=== PATIENT | male | born 1965 | race Caucasian/White ===

== ENCOUNTER 2022-03-09 21:54 | Inpatient (IN) | payer BC ==
[~2022-03-09] VITALS: Ht 165.1 cm; Wt 79.4 kg
[2022-03-09 21:54] VITALS: BP 151/78
[2022-03-09] MEDS ORDERED: KETOROLAC 30 MG/ML VIAL IVP ONE (23:55)
[2022-03-09] MEDS ORDERED: NACL 0.9% 1,000 ML IV ONE (23:55)
--- NOTE | 2022-03-10 00:03 | NUR ---
PATIENT SITTING IN CHAIR C. IVF INITIATED PER ORDERS. PATIENT TOLERATED WELL.
[2022-03-10 00:17] LABS: APPEARANCE,URINE CLEAR (CLEAR); BILIRUBIN,URINE NEGATIVE (NEGATIVE); BLOOD, URINE 3+ (NEGATIVE); COLOR,URINE YELLOW (YELLOW); LEUKOCYTE ESTERASE ,URINE TRACE (NEGATIVE); NITRITE, URINE POSITIVE (NEGATIVE); UGLUCOSE 3+ (NEGATIVE)
[2022-03-10 00:17] LABS: BASOPHILS % (AUTO) 0.1 % (0.0-2.0); HEMATOCRIT 34.7 % (36-52); HEMOGLOBIN 11.6 g/dL (12.0-18.0); LYMPHOCYTES # (AUTO) 0.4 K/uL (2.0-11.5); LYMPHOCYTES % (AUTO) 2.5 % (20.5-51.1); MEAN CORPUSCULAR HEMOGLOBIN 30 pg (27-31); MEAN CORPUSCULAR HGB CONC 33 g/dL (33-37); MEAN CORPUSCULAR VOLUME 89.6 fL (80-94); MONOCYTES # (AUTO) 1.4 K/uL (0.8-1.0); MONOCYTES % (AUTO) 8.2 % (1.7-9.3); NEUTROPHILS # (AUTO) 15.5 K/uL (1.8-7.7); NEUTROPHILS % (AUTO) 89.2 % (42.2-75.2); PLATELET COUNT (AUTO) 195 K/uL (140-450); RED BLOOD CELL COUNT(AUTO) 3.87 MIL/uL (4.20-6.10); RED CELL DISTRIBUTION WIDTH 13.9 % (11.6-13.7); WHITE BLOOD COUNT (AUTO) 17.4 K/uL (4.8-10.8)
[2022-03-10 00:34] LABS: ALBUMIN 2.3 g/dL (3.4-5.0); ANION GAP 15.3 (8-16); CARBON DIOXIDE 23.3 mmol/L (21-32); CREATININE 1.5 mg/dL (0.6-1.3); POTASSIUM 4.6 mmol/L (3.5-5.1); TOTAL BILIRUBIN 0.6 mg/dL (0.0-1.0)
[2022-03-10 00:46] LABS: RBC,URINE 0-5 /HPF (0-5); WBC,URINE 20-60 /HPF (0-5)
[2022-03-10] MEDS ORDERED: cefTRIAXone 2,000 MG in DEXTROSE 5% 100 ML IV ONE (01:00)
[2022-03-10] MEDS ORDERED: NACL 0.9% 1,000 ML IV ONE (01:00)
--- NOTE | 2022-03-10 01:27 | NUR ---
PATIENT TO BED 12. IVF INTIATED ORDERED. TOLERATED WELL.
[2022-03-10] MEDS ORDERED: cefTRIAXone 2,000 MG VIAL ONE (02:36)
[2022-03-10] MEDS ORDERED: MORPHINE SULFATE 2 MG/ML SYR IVP ONE (05:00)
[2022-03-10] MEDS ORDERED: ONDANSETRON 4 MG/2 ML VIAL IVP ONE (05:00)
[2022-03-10] MEDS ORDERED: HYDROcodone/APAP 5/325 MG 1 TAB TAB PO PRN (05:40)
[2022-03-10] MEDS ORDERED: LORazepam 2 MG/ML VIAL IVP PRN (05:40)
[2022-03-10] MEDS: NACL 0.9% 1,000 ML IV SCH ×2 (06:02→14:59)
--- NOTE | 2022-03-10 06:46 | NUR ---
Dr. Chao verbally informed, via telephone, patient's BG is 216. Dr. Chao verbalized understanding, no further orders.
[2022-03-10] MEDS ORDERED: GLYB-200 PO (07:39)
[2022-03-10] MEDS ORDERED: METF-1253 PO (07:40)
--- NOTE | 2022-03-10 07:50 | NUR ---
Received report from Mark JOSEPH, assumed care at this time.
--- NOTE | 2022-03-10 07:51 | NUR ---
Change of shift report given to AM shift nurse Yanira RN. AM shift nurse Yanira RN verbalized understanding of report, no further questions.
--- NOTE | 2022-03-10 08:16 | NUR ---
Patient will be admitted to care of DR. SWANSON. Admited to Med/Surg. Will go to room 120B. Belongings list completed. Report to CHIKI ALTMAN BEDSIDE.
[2022-03-10 08:19] VITALS: BP 147/75
--- NOTE | 2022-03-10 08:20 | NUR ---
PT ARRIVED ONTO UNIT FROM ER DEPT. PT ARRIVED VIA WHEEL CHAIR, ACCOMPANIED BY ER NURSE. PT AMBULATED FROM WHEELCHAIR TO BED INDEPENDENTLY. PT IS ALERT, ORIENTED, AND COOPERATIVE. ABLE TO FOLLOW COMMANDS, ABLE TO VERBALIZE NEEDS. [place] SPEAKING ONLY. RESPIRATIONS ARE EVEN AND UNLABORED ON ROOM AIR. NO SIGNS OF DISTRESS NOTED. NO COMPLAINTS OF SOB. ABD IS NONTENDER, NONDISTENDED WITH BOWEL SOUNDS PRESENT. PT IS ON CCHO DIET, TOLERATING WELL. PT HAS FULL ROM TO UPPER AND LOWER EXTREMITIES. SKIN IS WARM, DRY, AND INTACT. PT HAS IV TO L AC, RUNNING NS @ 100ML/HR. PT DENIES ANY PAIN OR DISCOMFORT AT THIS TIME. ORIENTED PT TO ROOM, CALL LIGHT, AND HOSPITAL POLICIES. MRSA DONE, VITAL SIGNS DONE. CALL LIGHT WITHIN REACH. ALL SAFETY MEASURES IN PLACE.
[2022-03-10] MEDS ORDERED: DEXTROSE 50% 50 ML SYR IVP PRN (08:30)
[2022-03-10] MEDS: ENOXAPARIN 40 MG/0.4 ML SYR SUBQ SCH (08:58)
--- NOTE | 2022-03-10 08:59 | NUR ---
ADMINISTERED SCHEDULED MEDICATION. EDUCATED PT ON MED ADMINISTERED. PT VERBALIZED UNDERSTANDING. PT TOLERATED WELL.
[2022-03-10] MEDS: ACETAMINOPHEN 325 MG TAB PO PRN ×2 (10:05→16:36)
--- NOTE | 2022-03-10 10:09 | NUR ---
DIGITAL MEDIA INTERN INFORMED NURSE THAT PT HAD TEMPERATURE OF 99.8. WENT TO ASSESS PT. PT ASKING FOR TYLENOL. ADMINISTERED TYLENOL, STARTED COOLING MEASURES. WILL RE-ASSESS.
--- NOTE | 2022-03-10 11:10 | NUR ---
WENT TO GO RE-ASSESS PT TEMP. PT RESTING AT THIS TIME. RESPIRATIONS ARE EVEN AND UNLABORED. NO SIGNS OF DISTRESS NOTED. TEMPERATURE DOWN TO 98.7. WILL CONTINUE TO MONITOR.
[2022-03-10] MEDS: BLOOD GLUCOSE MONITORING 1 DEV DEV FS SCH ×3 (11:36→20:46)
[2022-03-10] MEDS: INSULIN LISPRO SLIDING SCALE 100 UNITS/ML VIAL SUBQ PRN ×3 (11:40→21:02)
--- NOTE | 2022-03-10 13:40 | NUR ---
WENT TO CHECK ON PT. FAMILY AT BEDSIDE. FAMILY STATES PT "REALLY LIKES EATING SOUP. WE WILL BRING HIM SOME SOUP LATER". EDUCATED PT AND FAMILY ON APPROPRIATE FOOD CHOICES WITH [facility] DIET.
--- NOTE | 2022-03-10 13:54 | NUR ---
PATIENT HAS BEEN SCREENED AND CATEGORIZED MODERATE NUTRITION RISK. PATIENT WILL BE SEEN WITHIN 3-5 DAYS OF ADMISSION. / [address]
[2022-03-10 16:00] VITALS: BP 128/71
--- NOTE | 2022-03-10 16:47 | NUR ---
PT BLOOD GLUCOSE WAS 275. COVERED WITH 6 UNITS INSULIN PER SLIDING SCALE.
--- NOTE | 2022-03-10 18:30 | NUR ---
RECEIVED CALL FROM LAB, STATED THAT PRELIMINARY BLOOD CULTURE WAS GRAM POSITIVE RODS. SPECIMEN WILL BE SENT TO [facility].
--- NOTE | 2022-03-10 19:24 | NUR ---
ENDORSED PT TO CRUCIBLE FURNACE TENDER NURSE FOR CONTINUITY OF CARE. PT IS STABLE.
--- NOTE | 2022-03-10 19:25 | NUR ---
RECD. RESTING IN BED, AWAKE, A/OX4. RESPIRATION EVEN AND UNLABORED. IV OF NS INFUSING AT 100 ML/HR, LEFT AC G18. USES THE URINAL, AMBULATORY TO THE BR. CONVERSING WITH VISITOR AT THE BEDSIDE. DENIES PAIN 0/10.
--- NOTE | 2022-03-10 20:00 | NUR ---
Patient's Plan of Care was discussed and reviewed with ANUPAMA: LORENA
--- NOTE | 2022-03-10 20:46 | NUR ---
BLOOD SUGAR CHECKED, SNACK FOR THE NIGHT GIVEN.
[2022-03-10 20:50] VITALS: BP 130/58
[2022-03-10] MEDS: MORPHINE SULFATE 2 MG/ML SYR IVP PRN (20:57)
[2022-03-10] MEDS: ONDANSETRON 4 MG/2 ML VIAL IVP PRN (20:58)
--- NOTE | 2022-03-11 | NUR ---
SLEEPING COMFORTABLY IN BED, RESPIRATION EVEN AND UNLABORED.
--- NOTE | 2022-03-11 01:43 | NUR ---
SCHEDULED ANTIBIOTIC ADMINISTERED BY OPAL FONTAINE. TOLERATED WELL.
[2022-03-11] MEDS: NACL 0.9% 1,000 ML IV SCH ×3 (01:56→21:44)
--- NOTE | 2022-03-11 03:30 | NUR ---
SLEEPING COMFORTABLY IN BED, RESPIRATION EVEN AND UNLABORED.
[2022-03-11 05:55] LABS: BASOPHILS % (AUTO) 0.1 % (0.0-2.0); EOSINOPHILS % (AUTO) 0.1 % (0.0-4.0); HEMATOCRIT 33.8 % (36-52); HEMOGLOBIN 11.4 g/dL (12.0-18.0); LYMPHOCYTES # (AUTO) 0.9 K/uL (2.0-11.5); LYMPHOCYTES % (AUTO) 5.5 % (20.5-51.1); MEAN CORPUSCULAR HEMOGLOBIN 30 pg (27-31); MEAN CORPUSCULAR HGB CONC 34 g/dL (33-37); MEAN CORPUSCULAR VOLUME 89.3 fL (80-94); MONOCYTES # (AUTO) 2.1 K/uL (0.8-1.0); MONOCYTES % (AUTO) 12.9 % (1.7-9.3); NEUTROPHILS # (AUTO) 12.9 K/uL (1.8-7.7); NEUTROPHILS % (AUTO) 81.4 % (42.2-75.2); PLATELET COUNT (AUTO) 207 K/uL (140-450); RED BLOOD CELL COUNT(AUTO) 3.79 MIL/uL (4.20-6.10); RED CELL DISTRIBUTION WIDTH 14.2 % (11.6-13.7); WHITE BLOOD COUNT (AUTO) 15.9 K/uL (4.8-10.8)
[2022-03-11] MEDS: BLOOD GLUCOSE MONITORING 1 DEV DEV FS SCH ×4 (06:18→20:19)
--- NOTE | 2022-03-11 06:18 | NUR ---
BS CHECKED - 187. ADMINISTERED INSULIN PER SLIDING SCALE ORDERED BY MD. AFEBRILE DURING THE SHIFT.
[2022-03-11] MEDS: INSULIN LISPRO SLIDING SCALE 100 UNITS/ML VIAL SUBQ PRN ×4 (06:19→20:22)
[2022-03-11 06:46] LABS: ALBUMIN 1.7 g/dL (3.4-5.0); ANION GAP 14.9 (8-16); CARBON DIOXIDE 22.3 mmol/L (21-32); CREATININE 1.2 mg/dL (0.6-1.3); MAGNESIUM 1.8 mg/dL (1.8-2.4); POTASSIUM 4.2 mmol/L (3.5-5.1); TOTAL BILIRUBIN 0.5 mg/dL (0.0-1.0)
--- NOTE | 2022-03-11 07:15 | NUR ---
CONDITION REMAIN STABLE. ENDORSED TO AM SHIFT NURSE FOR CONTINUITY OF CARE,
[2022-03-11 08:00] VITALS: BP 120/73
[2022-03-11] MEDS: ENOXAPARIN 40 MG/0.4 ML SYR SUBQ SCH (09:41)
--- NOTE | 2022-03-11 12:00 | NUR ---
DC PLANNING SW MET WITH PATIENT AT BEDSIDE TO GATHER COLLATERAL INFORMATION. PT REPORTS LIVING AT HOME WITH HIS FAMILY AT THE ADDRESS LISTED ON FILE. PATIENT IDENTIFIES BRUNO ROBERTS (DAUGHTER) [phone] AND SHANEL ROBERTS (SON) [phone]. PATIENT REPORTS MEETING WITH PCP NEEDED AND REPORTS LAST VISIT TWO MONTHS AGO. PATIENT REPORTS MEDICATION COMPLIANCE AND DENIES BARRIERS IN ACCESSING NEEDED MEDICATIONS. PATIENT REPORTS PICKING UP MEDICATION FROM [facility] [place], WHEN NEEDED. PATIENT DENIES MENTAL HEALTH AND SUBSTANCE USE HX. 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 PATIENT REPORTS DC PLAN IS TO RETURN HOME, WITH HIS FATHER PROVIDING TRANSPORTATION ONCE CLEARED FOR DC.
[2022-03-11] MEDS: MORPHINE SULFATE 2 MG/ML SYR IVP PRN ×2 (12:13→20:08)
[2022-03-11 16:00] VITALS: BP 144/87
--- NOTE | 2022-03-11 19:30 | NUR ---
RECEIVED REPORT FROM AM RN BENJIE FOR CONTINUITY OF CARE.PT IS STABLE IN BED PORTUGUESE SPEAKING. A&OX4 DAUGHTER BRUNO ROBERTS AT BED SIDE. ATE 75% DINNER ( CCHO 60 GM DIET DINNER). C/O 8/10 EPIGASTRIC PAIN WITH NAUSEA. 2008 MEDICATED WITH MSO4 2MG IVP FOR PAIN AND ZOFRAN 4MG IVP FOR NAUSEA. CN=738 COVERED WITH 4 UNITS HUMALOG INSULIN PER SLIDING SCALE. RR EVEN AND UNLABORED WITH EQUAL CHEST RISE. ON RM AIR/O2 WITH NAD. GI INTACT. PT'S SKIN IS INTACT. PT IS AMBULATORY AND CONTINENT. ALL SAFETY MEASURES IN PLACE. BED IN LOW AND LOCKED POSITION. CALL LIGHT WITHIN REACH. WILL CONTINUE TO OBSERVE.
[2022-03-11] MEDS: ONDANSETRON 4 MG/2 ML VIAL IVP PRN (20:09)
--- NOTE | 2022-03-11 21:30 | NUR ---
MORPHINE AND ZOFRAN EFFECTIVE PT REPORTS PAIN NOW A 4. SLEEPING BUT EASILY AROUSABLE. WILL CONTINUE TO MONITOR.
[2022-03-12] VITALS: BP 125/75
[2022-03-12] MEDS ORDERED: cefTRIAXone 2,000 MG in DEXTROSE 5% 100 ML IV SCH (02:00)
--- NOTE | 2022-03-12 02:00 | NUR ---
PT REMAINS ASLEEP RR EVEN AND UNLABORED WITH SYMMETRICAL CHEST RISE. ROCEPHAN IVPB INFUSED PER PUMP. ALL SAFETY MEASURES IN PLACE. WILL CONTINUE TO MONITOR.
--- NOTE | 2022-03-12 06:30 | NUR ---
CS=832 COVERED WITH 2 UNITS HUMALOG INSULIN PER SLIDING SCALE.
[2022-03-12] MEDS: BLOOD GLUCOSE MONITORING 1 DEV DEV FS SCH ×2 (06:33→11:23)
[2022-03-12] MEDS: INSULIN LISPRO SLIDING SCALE 100 UNITS/ML VIAL SUBQ PRN ×2 (06:35→11:23)
--- NOTE | 2022-03-12 07:25 | NUR ---
RECEIVED PT FROM ASSEMBLY LINE SUPERVISOR NURSE FOR CONTINUITY OF CARE. PT SLEEPING, EASILY AROUSABLE BY VERBAL STIMULI. RESPIRATIONS EVEN AND UNLABORED ON RA. NO DISTRESS NOTED. SKIN IS INTACT, WARM AND DRY TO TOUCH. IV SITE ON LEFT HAND 22G, INFUSING NS AT 100ML/HR. CALL LIGHT WITHIN REACH. SAFETY PRECAUTIONS IN PLACE. WILL CONTINUE TO MONITOR.
[2022-03-12] MEDS: NACL 0.9% 1,000 ML IV SCH (07:46)
--- NOTE | 2022-03-12 07:52 | NUR ---
Patient's Plan of Care was discussed and reviewed with ASBESTOS REMOVAL SUPERVISOR:
[2022-03-12 08:00] VITALS: BP 126/72
[2022-03-12] MEDS: ENOXAPARIN 40 MG/0.4 ML SYR SUBQ SCH (08:32)
--- NOTE | 2022-03-12 08:43 | NUR ---
ADMINISTERED SCHEDULED MORNING MED. PT TEACHING ABOUT MED GIVEN. PT VERBALIZED UNDERSTANDING. WILL CONTINUE TO MONITOR.
--- NOTE | 2022-03-12 11:41 | NUR ---
SLIDING SCALE INSULIN ADMINISTERED FOR BS 245. WILL CONTINUE TO MONITOR.
--- NOTE | 2022-03-12 13:34 | NUR ---
DID ROUNDS. PT IN BED, WITH DAUGHTER AT BEDSIDE. NO COMPLAINTS OF PAIN. NO DISTRESS NOTED. WILL CONTINUE TO MONITOR.
[2022-03-12] MEDS ORDERED: CIPR500T4 PO (14:43)
[2022-03-12 15:06] VITALS: BP 126/72
--- NOTE | 2022-03-12 15:35 | NUR ---
DISCHARGE PAPERS DISCUSSED WITH THE PT. PT VERBALIZED UNDERSTANDING. REMOVED IV CATHETER INTACT. REMOVED ID WRIST BAND. ALL BELONGINGS TAKEN UPON DC. PT DC HOME. PT WHEELED OUT VIA WHEELCHAIR BY DESMOND MAYNARD. PT IS STABLE.
--- NOTE | 2022-03-12 15:56 | NUR ---
RECEIVED A CRITICAL LAB VALUE FROM THE LAB. E-COLI ON THE URINE. PT WAS ALREADY DC. DR CHIANG MADE AWARE.
== END 2022-03-12 16:16 | disposition home or self-care (01) | DRG 872 ==
LOC: MED 21:54 → MTU 03-10 05:40 → MMU 03-10 05:40 → MTU 03-10 06:29
PROVIDERS: ADMIT Internal Medicine; ATTEND Internal Medicine
DX: A41.9 Sepsis, unspecified organism (principal); N12 Tubulo-interstitial nephritis, not specified as acute or chronic; E87.1 Hypo-osmolality and hyponatremia; N17.9 Acute kidney failure, unspecified; E11.65 Type 2 diabetes mellitus with hyperglycemia; I10 Essential (primary) hypertension; E78.5 Hyperlipidemia, unspecified; B96.20 Unspecified Escherichia coli [E. coli] as the cause of diseases classified elsewhere; Z20.822 Contact with and (suspected) exposure to COVID-19; Z79.899 Other long term (current) drug therapy
CPT/HCPCS: 36415; 80053; 81001; 82948; 83036; 83605; 83735; 85025; 87040; 87081; 87086; 96361; 96365; 96375; 99285; J0696; J1650; J1815; J1885; J2270; J2405; J7060